=== PATIENT | female | born 1945 | race Caucasian/White ===

== ENCOUNTER 2019-09-16 05:24 | Inpatient (IN) | payer MEDICARE, MEDICAID ==
[~2019-09-16] VITALS: Ht 154.9 cm; Wt 90.7 kg
[2019-09-16] MEDS ORDERED: ONDANSETRON HCL 4MG/2ML INJ IV ONE (06:30)
[2019-09-16] MEDS ORDERED: TRANEXAMIC ACID 1,000 MG/10 ML TP ONE (06:30)
[2019-09-16] MEDS ORDERED: DILTIAZEM HCL 5MG/ML 5ML VIAL IV ONE ×2 (06:30→08:00)
[2019-09-16 06:54] LABS: BASOPHILS % 0.5 % (0.0-2.0); EOSINOPHILS % 1.1 % (0.0-5.0); HEMATOCRIT. 40.9 % (36.0-48.0); HEMOGLOBIN. 13.5 g/dL (12.0-16.0); MEAN CORPUSCULAR HEMOGLOBIN 28.5 pg (28.0-32.0); MEAN CORPUSCULAR VOLUME 86.6 fL (81.0-99.0); MEAN PLATELET VOLUME 9.6 fl (7.4-10.4); MONOCYTES % 6.4 % (2.0-8.0); PLATELET 239 x1000/uL (130-400); RED BLOOD CELL COUNT 4.73 mill/uL (4.2-5.4); RED CELL DISTRIBUTION WIDTH 14.9 % (11.6-14.6)
[2019-09-16 06:56] LABS: INR 1.9; PARTIAL THROMBOPLASTIN TIME 31.5 sec (23.4-31.0); PROTHROMBIN TIME 20.5 sec (9.6-11.0)
[2019-09-16 06:58] LABS: CHLORIDE 105 mEq/L (98-107)
[2019-09-16] MEDS ORDERED: FUROSEMIDE 20MG/2ML VIAL IVP ONE (08:15)
[2019-09-16] MEDS ORDERED: ACETAMINOPHEN 325MG TABLET PO PRN (11:45)
[2019-09-16] MEDS ORDERED: DEXTROSE 50% WATER 50ML SYRINGE IV PRN (11:45)
[2019-09-16] MEDS ORDERED: ONDANSETRON HCL 4MG/2ML INJ IV PRN (11:45)
[2019-09-16] MEDS ORDERED: SODIUM CHLORIDE 0.9% 500 ML IV ONE (13:45)
[2019-09-16] MEDS: BLOOD SUGAR DIAGNOSTIC STRIP TEST SCH ×3 (14:24→21:06)
[2019-09-16] MEDS: INSULIN LISPRO 100 UNITS/ML SUBCUT SCH ×3 (14:24→21:06)
[2019-09-16 14:26] LABS: HEMATOCRIT 35.9 % (36.0-48.0); HEMOGLOBIN 11.8 g/dL (12.0-16.0); MEAN CORPUSCULAR HEMOGLOBIN 28.5 pg (28.0-32.0); MEAN CORPUSCULAR VOLUME 86.5 fL (81.0-99.0); PLATELET 221 x1000/uL (130-400); RED BLOOD CELL COUNT 4.14 mill/uL (4.2-5.4); RED CELL DISTRIBUTION WIDTH 14.8 % (11.6-14.6)
[2019-09-16] MEDS: DILTIAZEM HCL 30MG TABLET PO SCH ×2 (15:59→21:41)
[2019-09-16] MEDS ORDERED: DILTIAZEM HCL 5MG/ML 5ML VIAL IV NR (20:44)
[2019-09-16 22:30] VITALS: BP 122/58
[2019-09-16] MEDS: PANTOPRAZOLE SODIUM 40 MG/VIAL IV SCH (23:13)
[2019-09-16] MEDS: SODIUM CHLORIDE 0.9% 1,000 ML IV SCH (23:14)
[2019-09-16 23:50] VITALS: BP 122/58
[2019-09-17] VITALS (7 sets, daily range): BP systolic 106–126; BP diastolic 51–63
[2019-09-17 00:44] LABS: BASOPHILS % 0.3 % (0.0-2.0); HEMATOCRIT. 32.5 % (36.0-48.0); HEMOGLOBIN. 10.9 g/dL (12.0-16.0); LYMPHOCYTES % 25.2 % (20.0-50.0); MEAN CORPUSCULAR HEMOGLOBIN 28.8 pg (28.0-32.0); MEAN CORPUSCULAR VOLUME 86.3 fL (81.0-99.0); MEAN PLATELET VOLUME 9.2 fl (7.4-10.4); MONOCYTES % 12.9 % (2.0-8.0); NEUTROPHILS % 61.6 % (40.0-76.0); PLATELET 208 x1000/uL (130-400); RED BLOOD CELL COUNT 3.76 mill/uL (4.2-5.4); RED CELL DISTRIBUTION WIDTH 14.7 % (11.6-14.6)
[2019-09-17] MEDS: DILTIAZEM HCL 60MG TABLET PO SCH ×4 (01:24→17:18)
[2019-09-17] MEDS: BLOOD SUGAR DIAGNOSTIC STRIP TEST SCH ×4 (06:28→21:00)
[2019-09-17] MEDS: INSULIN LISPRO 100 UNITS/ML SUBCUT SCH ×4 (06:28→21:00)
[2019-09-17 06:31] LABS: BASOPHILS % 0.3 % (0.0-2.0); EOSINOPHILS % 0.1 % (0.0-5.0); HEMATOCRIT. 31.2 % (36.0-48.0); HEMOGLOBIN. 10.5 g/dL (12.0-16.0); LYMPHOCYTES % 24.8 % (20.0-50.0); MEAN CORPUSCULAR HEMOGLOBIN 28.9 pg (28.0-32.0); MEAN CORPUSCULAR VOLUME 86.2 fL (81.0-99.0); MONOCYTES % 12.3 % (2.0-8.0); NEUTROPHILS % 62.5 % (40.0-76.0); PLATELET 202 x1000/uL (130-400); RED BLOOD CELL COUNT 3.63 mill/uL (4.2-5.4); RED CELL DISTRIBUTION WIDTH 14.5 % (11.6-14.6)
[2019-09-17 06:56] LABS: CHLORIDE 109 mEq/L (98-107)
[2019-09-17] MEDS: PANTOPRAZOLE SODIUM 40 MG/VIAL IV SCH ×2 (09:42→21:57)
[2019-09-17] MEDS ORDERED: WARF-53 PO (11:22)
[2019-09-17] MEDS ORDERED: ASPI-1158 PO (11:22)
[2019-09-17] MEDS ORDERED: METF-815 PO (11:22)
[2019-09-17] MEDS ORDERED: OMEP20CA14 PO (11:22)
[2019-09-17] MEDS ORDERED: PRAV40TA58 PO (11:22)
[2019-09-17] MEDS ORDERED: METO-539 PO (11:22)
[2019-09-17] MEDS ORDERED: LISI-604 PO (11:22)
[2019-09-17] MEDS: SODIUM CHLORIDE 0.9% 1,000 ML IV SCH (12:25)
[2019-09-17 12:42] LABS: INR 1.5; PROTHROMBIN TIME 16.1 sec (9.6-11.0)
[2019-09-18] MEDS: DILTIAZEM HCL 60MG TABLET PO SCH ×5 (00:01→21:06)
[2019-09-18 00:20] VITALS: BP 131/64
[2019-09-18 04:00] VITALS: BP 129/76
[2019-09-18 06:28] LABS: BASOPHILS % 0.5 % (0.0-2.0); EOSINOPHILS % 2.2 % (0.0-5.0); HEMATOCRIT. 29.9 % (36.0-48.0); HEMOGLOBIN. 10.1 g/dL (12.0-16.0); LYMPHOCYTES % 26.9 % (20.0-50.0); MEAN CORPUSCULAR HEMOGLOBIN 29.3 pg (28.0-32.0); MEAN CORPUSCULAR VOLUME 87.2 fL (81.0-99.0); MEAN PLATELET VOLUME 9.2 fl (7.4-10.4); MONOCYTES % 10.6 % (2.0-8.0); NEUTROPHILS % 59.8 % (40.0-76.0); PLATELET 185 x1000/uL (130-400); RED BLOOD CELL COUNT 3.43 mill/uL (4.2-5.4); RED CELL DISTRIBUTION WIDTH 14.8 % (11.6-14.6)
[2019-09-18] MEDS: BLOOD SUGAR DIAGNOSTIC STRIP TEST SCH ×4 (06:46→21:06)
[2019-09-18] MEDS: INSULIN LISPRO 100 UNITS/ML SUBCUT SCH ×4 (06:47→21:00)
[2019-09-18 07:14] LABS: CHLORIDE 106 mEq/L (98-107)
[2019-09-18] MEDS ORDERED: REGADENOSON 0.4 MG/5 ML IV ONE ×2 (07:45→09:36)
[2019-09-18 08:00] VITALS: BP 120/65
[2019-09-18] MEDS: PANTOPRAZOLE SODIUM 40 MG/VIAL IV SCH ×2 (08:27→21:05)
[2019-09-18] MEDS ORDERED: PANT40TA4 MT (11:38)
[2019-09-18] MEDS ORDERED: LISI-604 PO (11:38)
[2019-09-18] MEDS ORDERED: FERR325T6 MT (11:40)
[2019-09-18 12:19] VITALS: BP 141/69
[2019-09-18] MEDS: SODIUM CHLORIDE 0.9% 1,000 ML IV SCH ×2 (13:22)
[2019-09-18 16:00] VITALS: BP 111/54
[2019-09-18] MEDS ORDERED: BISACODYL 5MG TABLET PO NR (16:30)
[2019-09-18 20:00] VITALS: BP 148/74
[2019-09-19] VITALS: BP 134/78
[2019-09-19] MEDS: SODIUM CHLORIDE 0.9% 1,000 ML IV SCH ×2 (01:30→13:20)
[2019-09-19 04:00] VITALS: BP 126/57
[2019-09-19] MEDS: DILTIAZEM HCL 60MG TABLET PO SCH ×2 (06:32→12:55)
[2019-09-19] MEDS: BLOOD SUGAR DIAGNOSTIC STRIP TEST SCH ×4 (06:32→21:06)
[2019-09-19 07:23] LABS: BASOPHILS % 0.6 % (0.0-2.0); EOSINOPHILS % 2.3 % (0.0-5.0); HEMATOCRIT. 29.2 % (36.0-48.0); HEMOGLOBIN. 9.8 g/dL (12.0-16.0); LYMPHOCYTES % 26.8 % (20.0-50.0); MEAN CORPUSCULAR VOLUME 86.6 fL (81.0-99.0); MONOCYTES % 14.5 % (2.0-8.0); NEUTROPHILS % 55.8 % (40.0-76.0); PLATELET 202 x1000/uL (130-400); RED BLOOD CELL COUNT 3.38 mill/uL (4.2-5.4); RED CELL DISTRIBUTION WIDTH 14.6 % (11.6-14.6)
[2019-09-19 07:25] LABS: CHLORIDE 103 mEq/L (98-107)
[2019-09-19] MEDS: INSULIN LISPRO 100 UNITS/ML SUBCUT SCH ×4 (07:29→20:54)
[2019-09-19 08:00] VITALS: BP 127/60
[2019-09-19] MEDS: PANTOPRAZOLE SODIUM 40 MG/VIAL IV SCH ×2 (08:35→21:25)
[2019-09-19 12:00] VITALS: BP 149/71
[2019-09-19] MEDS ORDERED: SORBITOL 70% SOLN 30ML PO SCH (15:45)
[2019-09-19 16:00] VITALS: BP 142/73
[2019-09-19] MEDS ORDERED: NA PHOS,M-B/NA PHOS,DI-BA ENEMA 118ML PR PRN (18:30)
[2019-09-19 21:58] VITALS: BP 143/98
[2019-09-20] VITALS: BP 142/88
[2019-09-20] MEDS: DILTIAZEM HCL 60MG TABLET PO SCH ×4 (01:19→17:06)
[2019-09-20 04:00] VITALS: BP 116/59
[2019-09-20] MEDS: BLOOD SUGAR DIAGNOSTIC STRIP TEST SCH ×4 (05:51→21:12)
[2019-09-20] MEDS: INSULIN LISPRO 100 UNITS/ML SUBCUT SCH ×4 (05:53→21:12)
[2019-09-20 08:00] VITALS: BP 125/60
[2019-09-20] MEDS: PANTOPRAZOLE SODIUM 40 MG/VIAL IV SCH ×2 (09:23→21:51)
[2019-09-20 12:00] VITALS: BP 135/62
[2019-09-20] MEDS ORDERED: SORBITOL 70% SOLN 30ML PO NR (12:15)
[2019-09-20 15:38] LABS: HEMATOCRIT. 29.9 % (36.0-48.0); HEMOGLOBIN. 9.8 g/dL (12.0-16.0); MEAN CORPUSCULAR HEMOGLOBIN 28.7 pg (28.0-32.0); MEAN CORPUSCULAR VOLUME 87.1 fL (81.0-99.0); MEAN PLATELET VOLUME 8.7 fl (7.4-10.4); PLATELET 229 x1000/uL (130-400); RED BLOOD CELL COUNT 3.43 mill/uL (4.2-5.4); RED CELL DISTRIBUTION WIDTH 14.5 % (11.6-14.6)
[2019-09-20 15:43] LABS: CHLORIDE 106 mEq/L (98-107)
[2019-09-20] MEDS: SODIUM CHLORIDE 0.9% 1,000 ML IV SCH ×2 (15:43→17:06)
[2019-09-20 16:00] VITALS: BP 140/64
[2019-09-20 18:23] LABS: NUCLEATED RED BLOOD CELLS 1 /100 WBC; PLATELET ESTIMATE NORMAL
[2019-09-20 20:00] VITALS: BP 149/80
[2019-09-21] VITALS: BP 113/70
[2019-09-21] MEDS: DILTIAZEM HCL 60MG TABLET PO SCH ×3 (00:17→12:33)
[2019-09-21] MEDS: SODIUM CHLORIDE 0.9% 1,000 ML IV SCH (03:30)
[2019-09-21 04:00] VITALS: BP 124/60
[2019-09-21] MEDS: BLOOD SUGAR DIAGNOSTIC STRIP TEST SCH ×2 (06:32→12:17)
[2019-09-21 07:16] LABS: HEMOGLOBIN. 9.8 g/dL (12.0-16.0); MEAN CORPUSCULAR HEMOGLOBIN 29.5 pg (28.0-32.0); MEAN PLATELET VOLUME 8.8 fl (7.4-10.4); PLATELET 226 x1000/uL (130-400); RED BLOOD CELL COUNT 3.33 mill/uL (4.2-5.4); RED CELL DISTRIBUTION WIDTH 14.8 % (11.6-14.6)
[2019-09-21] MEDS: INSULIN LISPRO 100 UNITS/ML SUBCUT SCH ×2 (07:50→12:17)
[2019-09-21 08:00] VITALS: BP 132/66
[2019-09-21] MEDS: PANTOPRAZOLE SODIUM 40 MG/VIAL IV SCH (08:14)
[2019-09-21 08:36] LABS: CHLORIDE 105 mEq/L (98-107)
[2019-09-21 10:46] LABS: NUCLEATED RED BLOOD CELLS 2 /100 WBC
[2019-09-21 10:47] LABS: PLATELET ESTIMATE NORMAL
[2019-09-21] MEDS ORDERED: DILT240C96 MT (11:45)
[2019-09-21 12:00] VITALS: BP 148/60
[2019-09-21 12:07] VITALS: BP 148/60
== END 2019-09-21 13:00 | disposition home or self-care (01) | DRG 281 ==
LOC: ER 05:24 → EDBEDREQ 08:07 → EDBEDREQSVC 08:07 → ENRESERV 20:22 → 6WST 22:12
PROVIDERS: ADMIT Family Medicine Adult Medicine; ATTEND Family Medicine Adult Medicine
DX: I21.4 Non-ST elevation (NSTEMI) myocardial infarction (principal); I48.20 Chronic atrial fibrillation, unspecified; D62 Acute posthemorrhagic anemia; D68.69 Other thrombophilia; K92.1 Melena; R04.2 Hemoptysis; G62.9 Polyneuropathy, unspecified; R73.03 Prediabetes; Z53.29 Procedure and treatment not carried out because of patient's decision for other reasons; E78.5 Hyperlipidemia, unspecified; R04.0 Epistaxis; I25.10 Atherosclerotic heart disease of native coronary artery without angina pectoris; T45.515A Adverse effect of anticoagulants, initial encounter; I25.2 Old myocardial infarction; Z79.01 Long term (current) use of anticoagulants; Y92.89 Other specified places as the place of occurrence of the external cause
CPT/HCPCS: 36415; 71045; 78452; 80048; 80053; 80061; 82270; 82962; 83036; 83735; 83880; 84484; 85025; 85027; 86850; 86900; 86920; 93005; 93017; 93306; 97162; 99291; A9500; C9113; J1815; J1940; J2405; J2785; J3490